=== PATIENT | male | born 1950 | race Caucasian/White ===

== ENCOUNTER 2016-06-08 10:18 | Emergency (ER) | payer OTHER ==
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
--- NOTE | 2016-06-08 12:38 | ED ORDER SUMMARY ---
..... Patient: MARY BRYANT OrderSheet [facility] VisitID: [id number] [address] [place] [address] 65y, M Registration Date/Time: 06/08/2016 ORDER SHEET Weight: 102.0 kg (stated) Allergies: Codeine, Demerol, Caffeine, Augmentin GENERAL ORDERS: Knee 4V Left Urgent (10:59 06/08/2016 Sampson Shin) (Ack 11:00 Spencer) (13:56 LWhalen R.N.) MEDICATION ORDERS: Percocet PO 10/650 mg (HIGH ALERT MEDICATION, NOW) (10:59 06/08/2016 Sampson Shin) (11:04 LWhalen R.N.) Motrin (Peds) PO 600 mg (NOW) (11:00 06/08/2016 Sampson Shin) (11:04 LWhalen R.N.) IV FLUIDS: ORDER SHEET NOTES: [Electronically signed by Suzan Anne R.N. (13:57 06/08/2016)] [Electronically signed by Abel Sosa Dr. (01:50 06/10/2016)] [Electronically locked/signed by Suzan Anne R.N. (13:57 06/08/2016)]
--- NOTE | 2016-06-08 12:38 | ED ORDER SUMMARY ---
..... Patient: MARY BRYANT OrderSheet [facility] VisitID: [id number] [address] [place] [address] 65y, M Registration Date/Time: 06/08/2016 ORDER SHEET Weight: 102.0 kg (stated) Allergies: Codeine, Demerol, Caffeine, Augmentin GENERAL ORDERS: Knee 4V Left Urgent (10:59 06/08/2016 Sampson Shin) (Ack 11:00 Spencer) (13:56 LWhalen R.N.) MEDICATION ORDERS: Percocet PO 10/650 mg (HIGH ALERT MEDICATION, NOW) (10:59 06/08/2016 Sampson Shin) (11:04 LWhalen R.N.) Motrin (Peds) PO 600 mg (NOW) (11:00 06/08/2016 Sampson Shin) (11:04 LWhalen R.N.) IV FLUIDS: ORDER SHEET NOTES: [Electronically signed by Suzan Anne R.N. (13:57 06/08/2016)] [Electronically signed by Abel Sosa Dr. (01:50 06/10/2016)] [Electronically locked/signed by Suzan Anne R.N. (13:57 06/08/2016)]
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
--- NOTE | 2016-06-10 01:50 | ED MAR SUMMARY ---
..... Medication Administration Record [facility] [address] [place] [address] Patient: MARY BRYANT Visit ID: [id number] 65y, M Weight: 102.0 kg Height/Length: 67 in BMI: 35.3 ALLERGIES: Augmentin, Caffeine, Demerol, Codeine Given 11:06/08/2016 Suzan Anne R.N. Medication Administered: PERCOCET [PO] (OXYCODONE-ACETAMINOPHEN), Dose: 2 tab 10/650 mg Tablets PO. Medication Ordered: Percocet PO 10/650 mg (HIGH ALERT MEDICATION, NOW). Given 11:04 06/08/2016 Suzan Anne R.N. Medication Administered: MOTRIN (PEDS) [PO], Dose: 600 mg Tablets PO. Medication Ordered: Motrin (Peds) PO 600 mg (NOW).
--- NOTE | 2016-06-10 01:50 | ED MAR SUMMARY ---
..... Medication Administration Record [facility] [address] [place] [address] Patient: MARY BRYANT Visit ID: [id number] 65y, M Weight: 102.0 kg Height/Length: 67 in BMI: 35.3 ALLERGIES: Augmentin, Caffeine, Demerol, Codeine Given 11:06/08/2016 Suzan Anne R.N. Medication Administered: PERCOCET [PO] (OXYCODONE-ACETAMINOPHEN), Dose: 2 tab 10/650 mg Tablets PO. Medication Ordered: Percocet PO 10/650 mg (HIGH ALERT MEDICATION, NOW). Given 11:04 06/08/2016 Suzan Anne R.N. Medication Administered: MOTRIN (PEDS) [PO], Dose: 600 mg Tablets PO. Medication Ordered: Motrin (Peds) PO 600 mg (NOW).
--- NOTE | 2016-06-10 01:50 | ED MED RECONCILIATION SUMMARY ---
Patient: MARY BRYANT Medication Reconciliation Report [facility] VisitID: [id number] [address] [place] [address] 65y, M Registration Date/Time: 06/08/2016 Weight: 102.0 kg Height/Length: 67 in. BMI: 35.3 ALLERGIES: Augmentin, Caffeine, Codeine, Demerol The patient's Home Medications are listed below: CONTINUE TAKING THE FOLLOWING MEDICATIONS: Benadryl Oral CeleBREX Oral Telmisartan Oral The source(s) of the original Home Medication information: Not obtained. The following Medications were given to the patient in the Emergency Department: Percocet [PO] PO 2 tab, administered: 06/08/2016 11:04:00 AM Motrin (Peds) [PO] PO 600 mg, administered: 06/08/2016 11:04:00 AM The following Medications were prescribed to the patient: Percocet 5 mg/325 mg: take 1-2 tablets orally every 6 hours as needed for pain. Dispense twelve (12). No refill. Substitution is permissible. -- Abel Sosa Dr.
--- NOTE | 2016-06-10 01:50 | ED MED RECONCILIATION SUMMARY ---
Patient: MARY BRYANT Medication Reconciliation Report [facility] VisitID: [id number] [address] [place] [address] 65y, M Registration Date/Time: 06/08/2016 Weight: 102.0 kg Height/Length: 67 in. BMI: 35.3 ALLERGIES: Augmentin, Caffeine, Codeine, Demerol The patient's Home Medications are listed below: CONTINUE TAKING THE FOLLOWING MEDICATIONS: Benadryl Oral CeleBREX Oral Telmisartan Oral The source(s) of the original Home Medication information: Not obtained. The following Medications were given to the patient in the Emergency Department: Percocet [PO] PO 2 tab, administered: 06/08/2016 11:04:00 AM Motrin (Peds) [PO] PO 600 mg, administered: 06/08/2016 11:04:00 AM The following Medications were prescribed to the patient: Percocet 5 mg/325 mg: take 1-2 tablets orally every 6 hours as needed for pain. Dispense twelve (12). No refill. Substitution is permissible. -- Abel Sosa Dr.
--- NOTE | 2016-06-10 01:50 | ED DISCHARGE INSTRUCTIONS ---
Patient: MARY BRYANT General Instructions [facility] VisitID: [id number] [place] [address] 65y, M Registration Date/Time: 06/08/2016 06/08/2016 10:32 BP: 147/78. HR: 115. RR: 20. O2 saturation: 94%. Temp: 98 F. Hypertensive. Oxygen saturation normal. Joint effusion- left knee (traumatic). Essential hypertension. Single contusion with soft tissue hematoma to the left knee. INSTRUCTIONS Warnings: GENERAL WARNINGS: Return or contact your physician immediately if your condition worsens or changes unexpectedly, if not improving as expected, or if other problems arise. Specifically return if pain, vomiting, bleeding, breathing difficulty or fever. Your Current Medications: CONTINUE TAKING THE FOLLOWING MEDICATIONS: Benadryl Oral. CeleBREX Oral. Telmisartan Oral. Prescription Medications: Percocet 5 mg/325 mg: take 1-2 tablets orally every 6 hours as needed for pain. Dispense twelve (12). No refill. Substitution is permissible. Follow-up: Return to the emergency department as needed. Follow up with doctor. Screening today revealed the patient's blood pressure to be in the normal range. The patient should follow up with a primary care provider for blood pressure management. Understanding of the discharge instructions verbalized by patient. ADDITIONAL INFORMATION Contusion:Lower Extremity You have a CONTUSION of your LOWER extremity (leg, knee, ankle, foot, or toes). This causes local pain, swelling and sometimes bruising. There are no broken bones. This injury may take from a few days to a few weeks to heal. Home Care: 1) Keep your leg elevated to reduce pain and swelling. When sleeping, place a pillow under the injured leg. When sitting, support the injured leg so it is level with your waist. This is very important during the first 48 hours. 2) If CRUTCHES have been advised, do not bear full weight on the injured leg until you can do so without pain. You may return to sports when you are able to hop and run on the injured leg without pain. 3) Apply an ice pack (ice cubes in a plastic bag, wrapped in a towel) over the injured area for 20 minutes every 1-2 hours the first day for pain relief. Continue this 3-4 times a day until the pain and swelling goes away. 4) You may use acetaminophen (Tylenol) or ibuprofen (Motrin, Advil) to control pain, unless another pain medicine was prescribed. [ NOTE : If you have chronic liver or kidney disease or ever had a stomach ulcer or GI bleeding, talk with your doctor before using these medicines.] Follow Up with your doctor or this facility if you are not starting to improve within the next THREE days. [NOTE: If X-rays were taken, they will be reviewed by a radiologist. You will be notified of any new findings that may affect your care.] Get Prompt Medical Attention if any of the following occur: -- Pain or swelling increases -- Toes become cold, blue, numb or tingly -- Redness, warmth or drainage from the skin High Blood Pressure --Established High Blood Pressure (Hypertension) is a chronic disease. The cause is unknown in most cases. It can usually be controlled with lifestyle changes and/or medicines. Symptoms of high blood pressure may include headache, dizziness, visual changes, chest pain and shortness of breath. Sometimes it causes no symptoms at all. However, even if there are no symptoms, untreated high blood pressure increases the risk of heart attack, also known as acute myocardial infarction, or AMI, and stroke. It is a serious health risk and should not be ignored. A normal blood pressure is 120/80 or less. The first (top) number is the "systolic" pressure. The second (bottom) number is the "diastolic" pressure. Hypertension exists when either the top number is 140 or higher, OR the bottom number is 90 or higher on repeated measurements. Home Care: All patients with high blood pressure should do the following to lower their pressure. If you are on medicines, then these methods may reduce or eliminate your need for medicines in the future. Begin a weight loss program if you are overweight. Reduce your salt intake. Avoid high salt foods (olives, pickles, smoked meats, salted potato chips, etc.). Do not add salt to your food at the table. Use only small amounts of salt when cooking. Begin an exercise program. Discuss with your doctor what type of exercise program would be best for you. It doesn't have to be difficult. Even brisk walking for 20 minutes three times a week is a good form of exercise. Avoid medicines which contain heart stimulants. This includes many cold and sinus decongestant pills and sprays as well as diet pills. Check the warnings about hypertension on the label. Stimulants such as amphetamine or cocaine could be lethal for someone with hypertension. Never take these. Limit your caffeine intake or switch to caffeine-free products. Stop smoking. If you are a long-time smoker, this can be hard. Enroll in a stop-smoking program to improve your chance of success. Learning how to handle stress better is an important part of any program to lower blood pressure. Learn about relaxation methods such as meditation, yoga or biofeedback. If medicines were prescribed, take them exactly as directed. Missing doses may cause your blood pressure get out of control. Consider buying an automatic blood pressure machine (available at most pharmacies). Use this to monitor your blood pressure at home and report the results to your doctor. Follow Up: Regular visits to your own physician for blood pressure checks and medicine adjustment is an important part of your care. Make a follow-up appointment as directed by our staff. Get Prompt Medical Attention if any of the following occur: Chest pain or shortness of breath Severe headache Throbbing or rushing sound in the ears Nosebleed Sudden severe abdominal pain Extreme drowsiness, confusion or fainting Dizziness or vertigo (dizziness with spinning sensation) Weakness of an arm or leg or one side of the face Difficulty with speech or vision Knee Effusion A knee effusion is sometimes calledwater on the knee. The knee joint normally contains less than one ounce of lubricating fluid. Injury or inflammation of the knee joint causes extra fluid to collect there. When this occurs, the knee joint looks swollen and is usually painful. There may be difficulty in fully bending the knee. The most common cause of knee effusion is osteoarthritis due to wear and tear on the joint cartilage. Other causes include injury to the cartilage, inflammatory arthritis (such as gout or rheumatoid arthritis), and infection of the joint. If the cause of your knee effusion is not certain, a needle aspiration may be performed. This procedure removes a sample of joint fluid from the knee for testing. This is done with a local anesthetic. Removing excess fluid may also relieve swelling and pain. Home Care: Limit your activities. Avoid weight-bearing activities as much as possible when your knee is painful and swollen. Keep your leg elevated to reduce pain and swelling. When sleeping, place a pillow under the injured leg. When sitting, support the injured leg so it is level with your waist. This is very important during the first 48 hours. Apply an ice pack (ice cubes in a plastic bag, wrapped in a towel) over the injured area for 20 minutes every 1-2 hours the first day. Continue with ice packs 3-4 times a day for the next two days, then as needed for the relief of pain and swelling. You may use acetaminophen (Tylenol) or ibuprofen (Motrin, Advil) to control pain, unless another pain medicine was prescribed. [NOTE: If you have chronic liver or kidney disease or have ever had a stomach ulcer, talk with your doctor before using these medicines.] Ifcrutches or a walker have been recommended, do not bear full weight on the injured leg until you can do so without pain. Check with your doctor before returning to sports or full work duties. If you were given a Velcro knee brace: You may open the splint to apply ice. You may remove the splint to bathe and sleep, unless told otherwise. Follow Up with your doctor or as advised by our staff. If you are overweight, talk to your doctor about a weight loss program. The excess weight puts extra strain on your knees. Return Promptly or contact your doctor if any of the following occur: Increasing pain, redness or swelling of the knee Fever of 100.4F (38C) or higher, or as directed by your healthcare provider Oxycodone Hydrochloride, Acetaminophen Oral tablet What is this medicine? ACETAMINOPHEN; OXYCODONE (a set a ANNA arleth fen; ox i KOE done) is a pain reliever. It is used to treat mild to moderate pain. How should I use this medicine? Take this medicine by mouth with a full glass of water. Follow the directions on the prescription label. Take your medicine at regular intervals. Do not take your medicine more often than directed. Talk to your dental lab technician regarding the use of this medicine in children. Special care may be needed. Patients over 65 years old may have a stronger reaction and need a smaller dose. What side effects may I notice from receiving this medicine? Side effects that you should report to your doctor or health care management coordinator as soon as possible: allergic reactions like skin rash, itching or hives, swelling of the face, lips, or tongue breathing difficulties, wheezing confusion light headedness or fainting spells severe stomach pain yellowing of the skin or the whites of the eyes Side effects that usually do not require medical attention (report to your doctor or health care management coordinator if they continue or are bothersome): dizziness drowsiness nausea vomiting What may interact with this medicine? alcohol antihistamines barbiturates like amobarbital, butalbital, butabarbital, methohexital, pentobarbital, phenobarbital, thiopental, and secobarbital benztropine drugs for bladder problems like solifenacin, trospium, oxybutynin, tolterodine, hyoscyamine, and methscopolamine drugs for breathing problems like ipratropium and tiotropium drugs for certain stomach or intestine problems like propantheline, homatropine methylbromide, glycopyrrolate, atropine, belladonna, and dicyclomine general anesthetics like etomidate, ketamine, nitrous oxide, propofol, desflurane, enflurane, halothane, isoflurane, and sevoflurane medicines for depression, anxiety, or psychotic disturbances medicines for sleep muscle relaxants naltrexone narcotic medicines (opiates) for pain phenothiazines like perphenazine, thioridazine, chlorpromazine, mesoridazine, fluphenazine, prochlorperazine, promazine, and trifluoperazine scopolamine tramadol trihexyphenidyl What if I miss a dose? If you miss a dose, take it as soon as you can. If it is almost time for your next dose, take only that dose. Do not take double or extra doses. Where should I keep my medicine? Keep out of the reach of children. This medicine can be abused. Keep your medicine in a safe place to protect it from theft. Do not share this medicine with anyone. Selling or giving away this medicine is dangerous and against the law. Store at room temperature between 20 and 25 degrees C (68 and 77 degrees F). Keep container tightly closed. Protect from light. This medicine may cause accidental overdose and if it is taken by other adults, children, or pets. Flush any unused medicine down the toilet to reduce the chance of harm. Do not use the medicine after the expiration date. What should I tell my health care provider before I take this medicine? They need to know if you have any of these conditions: brain tumor Crohn's disease, inflammatory bowel disease, or ulcerative colitis drink more than 3 alcohol containing drinks per day drug abuse or addiction head injury heart or circulation problems kidney disease or problems going to the bathroom liver disease lung disease, asthma, or breathing problems an unusual or allergic reaction to acetaminophen, oxycodone, other opioid analgesics, other medicines, foods, dyes, or preservatives or trying to get breast-feeding What should I watch for while using this medicine? Tell your doctor or health care management coordinator if your pain does not go away, if it gets worse, or if you have new or a different type of pain. You may develop tolerance to the medicine. Tolerance means that you will need a higher dose of the medication for pain relief. Tolerance is normal and is expected if you take this medicine for a long time. Do not suddenly stop taking your medicine because you may develop a severe reaction. Your body becomes used to the medicine. This does NOT mean you are addicted. Addiction is a behavior related to getting and using a drug for a non-medical reason. If you have pain, you have a medical reason to take pain medicine. Your doctor will tell you how much medicine to take. If your doctor wants you to stop the medicine, the dose will be slowly lowered over time to avoid any side effects. You may get drowsy or dizzy. Do not drive, use machinery, or do anything that needs mental alertness until you know how this medicine affects you. Do not stand or sit up quickly, especially if you are an older patient. This reduces the risk of dizzy or fainting spells. Alcohol may interfere with the effect of this medicine. Avoid alcoholic drinks. There are different types of narcotic medicines (opiates) for pain. If you take more than one type at the same time, you may have more side effects. Give your health care provider a list of all medicines you use. Your doctor will tell you how much medicine to take. Do not take more medicine than directed. Call emergency for help if you have problems breathing. The medicine will cause constipation. Try to have a bowel movement at least every 2 to 3 days. If you do not have a bowel movement for 3 days, call your doctor or health care management coordinator. Do not take Tylenol (acetaminophen) or medicines that have acetaminophen with this medicine. Too much acetaminophen can be very dangerous. Many nonprescription medicines contain acetaminophen. Always read the labels carefully to avoid taking more acetaminophen. You have been given the following additional information: Contusion, Lower Extremity Hypertension, Established Knee Effusion Oxycodone Hydrochloride, Acetaminophen Oral tablet (Electronically signed by Abel Sosa Dr. 06/10/2016 1:50)
== END 2016-06-08 13:00 | disposition home or self-care (01) ==
LOC: ED SRH 10:18
DX: S80.02XA Contusion of left knee, initial encounter (principal); W18.39XA Other fall on same level, initial encounter; Y93.01 Activity, walking, marching and hiking; Y92.009 Unspecified place in unspecified non-institutional (private) residence as the place of occurrence of the external cause; Y99.9 Unspecified external cause status; M25.462 Effusion, left knee; I10 Essential (primary) hypertension; Z79.899 Other long term (current) drug therapy; Z88.5 Allergy status to narcotic agent; Z88.8 Allergy status to other drugs, medicaments and biological substances